=== PATIENT | female | born 1945 | race Caucasian/White ===

== ENCOUNTER 2018-07-12 15:57 | Observation (INO) | payer MEDICARE, MEDICAID ==
[2018-07-12] MEDS ORDERED: Metoprolol Tartrate 5 MG/5 ML SDV IVPUSH ONE (16:01)
[2018-07-12] MEDS ORDERED: Famotidine 20 MG/2 ML SDV IVPUSH ONE (16:01)
[2018-07-12] MEDS ORDERED: Sodium Chloride 0.9% 10 ML Syringe FLUSH PRN ×2 (16:01→20:23)
--- NOTE | 2018-07-12 16:01 | EDM.PDOC ---
ED HPI GENERAL MEDICAL PROBLEM - General Chief Complaint: General Stated Complaint: hypertension Time Seen by Provider: 07/12/18 16:00 Source of Information: Reports: Patient, Family (, daughters 2 and [id number].). Denies: Old Records (No [facility] records available) History Limitations: Reports: No Limitations - History of Present Illness INITIAL COMMENTS - FREE TEXT/NARRATIVE: Patient was brought to to this facility via private automobile by her son with the patient brought to the emergency room by our clinic nurse with the patient walking into the emergency room. [facility] did perform a brief initial evaluation in this facility, including blood pressure check. Note the patient was having a chiropractic evaluation of her neck earlier today and was referred to our clinic secondary to elevated blood pressure in that facility. No medications have been given to this point with the chiropractor also not performing any treatment prior to referral to this facility. She has been having a 7-8/10 bilateral neck pain and occipital headache during the last 3 days, which has been refractory to Tylenol including 1000 mg earlier this morning. She has not had problems with headaches in the past. No history of recent visual changes, diplopia, change in mental status, or other change in neurological status. She denies any significant caffeine use, recent OTC cold medications, etc.. Patient does have a known history of hypertension, however her medications were discontinued about one year ago by her regular provider secondary to low blood pressures? The patient denies any chest pain/pressure, heart flutter, dizziness, orthostasis, orthopnea, diaphoresis, paresthesias, recent decreased exercise tolerance, or any other anginal-type symptoms. No recent history of abdominal pain, heartburn, nausea, diarrhea, melena, gross hematochezia, or any food intolerance, including fatty foods, etc.. She denies any gross hematuria, colic, or other UTI symptoms. The patient also denies any recent fever, cough, wheezing, dyspnea, etc.. Onset: Gradual, Other (As above) Onset Date: 07/09/18 Duration: Constant Location: Reports: Head, Neck. Denies: Face, Chest, Abdomen, Back, Upper Extremity, Left, Upper Extremity, Right, Radiates to Quality: Reports: Ache, Same as Previous Episode, Throbbing Severity: Moderate Improves with: Reports: None Worsens with: Reports: None Context: Reports: Other (As above). Denies: Sick Contact, Trauma Associated Symptoms: Reports: Headaches. Denies: Confusion, Chest Pain, Cough, Diaphoresis, Fever/Chills, Loss of Appetite, Malaise, Nausea/Vomiting, Seizure, Shortness of Breath, Syncope, Weakness Treatments DYE EXPERT: Reports: Acetaminophen (As above) Bilateral Headache Pain Score (Numeric/FACES): 8 - Related Data Allergies Allergy/AdvReac Type Severity Reaction Status Date / Time No Known Allergies Allergy Verified 07/12/18 16:12 Home Meds: Home Meds Acetaminophen [Tylenol] 1 tab PO Q6HR PRN 07/12/18 [History] Aspirin [Adult Low Dose Aspirin EC] 81 mg PO DAILY 07/12/18 [History] Levothyroxine [Synthroid] 50 mcg PO ACBREAKFAST 07/12/18 [History] Past Medical History HEENT History: Reports: Impaired Vision, Other (See Below). Denies: Allergic Rhinitis, Cataract, Glaucoma, Hard of Hearing, Macular Degeneration, Retinal Detachment Other HEENT History: She wears glasses. Cardiovascular History: Reports: Hypertension, Other (See Below). Denies: Afib , Aneurysm, Arrhythmia, Blood Clots/VTE/DVT, CAD, Heart Failure, Heart Murmur, High Cholesterol, VA, PVD, Syncope Other Cardiovascular History: Previous history of hypertension with no current medical therapy. Respiratory History: Reports: None. Denies: Asthma, Bronchitis, Recurrent, COPD , Intubation, Previous, PE, Pneumonia, Recurrent, Pneumothorax, Pulmonary Fibrosis, Sleep Apnea, TB Gastrointestinal History: Reports: GERD. Denies: Celiac Disease, Cholelithiasis , Chronic Constipation, Chronic Diarrhea, GI Bleed, Hepatitis, Hiatal Hernia, Inflammatory Bowel Disease, Irritable Bowel Syndrome, Jaundice, Pancreatitis, PUD Genitourinary History: Reports: None. Denies: Acute Renal Failure, Chronic Renal Insuffiency, Renal Calculus, Retention, Urinary, STD, Urinary Incontinence , UTI, Recurrent BACKEND PYTHON DEVELOPER History: Reports: Dysfunctional Uterine Bleeding, Fibroids, . Denies: Endometriosis : 7 Para: 7 LMP (Approximate): Other (See Below) Other BACKEND PYTHON DEVELOPER History: Surgical menopause secondary to dysfunctional uterine bleeding as above. Full term without complications during pregnancies or deliveries. Bilateral ovarian cysts. Musculoskeletal History: Reports: Arthritis, Back Pain, Chronic, Neck Pain, Chronic, Osteoarthritis, Other (See Below). Denies: Amputation, Fracture, Gout , RA, SLE Other Musculoskeletal History: Umbilical hernia. Neurological History: Reports: None. Denies: Concussion, CVA, Headaches, Chronic, Head Trauma, Migraines, MS, Neuropathy, Peripheral, Parkinson's, Seizure, TIA, Vertigo Psychiatric History: Denies: Abuse, Victim of, ADD, ADHD, Addiction, Anxiety, Depression, Psych Hospitalization(s), Psychosis, PTSD, Suicide Attempt, Suicidal Ideation Endocrine/Metabolic History: Reports: Hypothyroidism, Obesity/BMI 30+. Denies: Diabetes, Gestational, Diabetes, Type I, Diabetes, Type II, Diabetes Mellitus, Type 3c, IDDM Hematologic History: Reports: None. Denies: Anemia, B12 Deficiency, Blood Transfusion(s), Iron Deficiency Immunologic History: Reports: None. Denies: AIDS, HIV, SLE Oncologic (Cancer) History: Reports: None. Denies: Basal Cell Carcinoma, Breast , Cervix, Colon, Hodgkin's Lymphoma, Leukemia, Lymphoma, Malignant Melanoma, Non -Hodgkin's Lymphoma, Ovarian, Squamous Cell Carcinoma, Thyroid, Uterine Dermatologic History: Reports: None. Denies: Eczema, Psoriasis - Infectious Disease History Infectious Disease History: Reports: None. Denies: C-Difficile, Chicken Pox ( Uncertain), Measles, Meningitis, Mononucleosis, MRSA, Mumps, Pertussis ( Whooping Cough), Rheumatic Fever, Rubella, Scarlet Fever, Shingles, TB, VRE - Past Surgical History Head Surgeries/Procedures: Reports: None HEENT Surgical History: Reports: Oral Surgery, Other (See Below). 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 Complete teeth extraction with complete dentures uppers and lowers. Cardiovascular Surgical History: Reports: None. Denies: Varicose Respiratory Surgical History: Reports: None. Denies: Thoracentesis GI Surgical History: Reports: Appendectomy, Colonoscopy, EGD, Other (See Below) . Denies: Cholecystectomy, Hernia, Abdominal, Hernia, Inguinal, Hernia Repair/ Other, Polypectomy Other GI Surgeries/Procedures: Colonoscopy in about 2010. EGD in about 2016. Appendectomy at age 18. Female Surgical History: Reports: Breast Biopsy, Hysterectomy, Salpingo- Oophorectomy, Other (See Below). Denies: Section, D&C, LEEP, Tubal Ligation Other Female Surgeries/Procedures: Complete hysterectomy with bilateral salpingo-oophorectomy secondary to uterine fibroids, dysfunctional uterine bleeding, and bilateral ovarian cysts. Left breast biopsy for benign disease in her 40s. Endocrine Surgical History: Reports: None. Denies: Thyroid Biopsy Neurological Surgical History: Reports: None. Denies: C-Spine, Discectomy, Laminectomy, Lumbar Spine, Sacral Spine, Spinal Fusion, Thoracic Spine, Vertebroplasty Musculoskeletal Surgical History: Reports: None. Denies: Arthroscopic Procedure , Carpal Tunnel, Ganglion Cyst, Joint Replacement, ORIF, Shoulder Surgery Oncologic Surgical History: Reports: None Dermatological Surgical History: Reports: None Social & Family History - Family History HEENT: Reports: None. Denies: Glaucoma, Macular Degeneration, Retinal Detachment Cardiac: Reports: CAD, Hypertension, VA, Stent, Other (See Below). Denies: Afib , Aneurysm, Arrhythmia, Blood Clots/VTE/DVT, Heart Failure, Heart Murmur, High Cholesterol, Pacemaker, PVD/COD, Syncope Other Cardiac Family History: Mother with history of VA with PTCA/stent in her 80s. Father with history of hypertension and CVA as below. Respiratory: Reports: None. Denies: Asthma, COPD, PE, Pneumothorax, Sleep Apnea GI: Reports: None. Denies: Celiac Disease, Cholelithiasis, Colon Polyps, GERD, GI bleed, Inflammatory Bowel Disease, Irritable Bowel Syndrome, PUD : Reports: None. Denies: Renal Calculus, Renal Disease/Insufficiency OBGYN: Reports: None. Denies: Dysfunctional uterine bleeding, Endometriosis, Fibroids, Recurrent Spontaneous Musculoskeletal: Reports: None. Denies: Gout, RA, SLE Neurological: Reports: CVA, Other (See Below). Denies: Alzheimers Disease, Cerebral Aneurysms, Migraines, MS, Parkinson's, Seizure, TIA Other Neurological Family History: Father with fatal CVA at age 92. Psychiatric: Reports: None. Denies: Abuse, Victim of, ADD, ADHD, Anxiety, Depression, Psych Hospitalization(s), PTSD, Suicide Attempt Endocrine/Metabolic: Reports: None. Denies: Diabetes, Gestational, Diabetes, Type I, Diabetes, type II, Diabetes Mellitus, Type 3c, Hypothyroidism, IDDM Hematologic: Reports: None. Denies: Anemia, SLE Immunologic: Reports: None. Denies: AIDS, HIV, SLE Oncologic: Reports: Breast, Other (See Below). Denies: Cervix, Colon, Hodgkin' s Lymphoma, Leukemia, Lymphoma, Non-Hodgkin's Lymphoma, Ovarian, Skin, Uterine Other Oncologic Family History: Mother with history of breast cancer in her 80s. - Tobacco Use Smoking Status *Q: Current Every Day Smoker Tobacco Use Within Last Twelve Months: No Used Tobacco, but Quit: No Smoking Cessation Information Provided To Patient: No Second Hand Smoke Exposure: No Second Hand Smoke Education Provided: No - Caffeine Use Caffeine Use: Reports: Coffee (2 cups per day), Tea (2 cups per day). Denies: Energy Drinks, Soda - Alcohol Use Alcohol Use History: No Days Per Week of Alcohol Use: 1 Number of Drinks Per Day: 1 Number of Drinks Per Day Comment: Usually beer. No previous DWIs, problems with alcohol abuse, etc. 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 ED EXAM, GENERAL - Physical Exam Exam: See Below Exam Limited By: No Limitations General Appearance: Alert, WD/WN, No Apparent Distress Eye Exam: Bilateral Eye: EOMI, Normal Fundi, Normal Inspection (No nystagmus. Patient wearing glasses.), PERRL Ears: Normal External Exam, Normal Canal, Normal TMs, Hearing Loss (Mild bilateral presbycusis) Nose: Normal Inspection, Normal Mucosa, No Blood Throat/Mouth: Normal Lips, Normal Gums, Normal Oropharynx, Normal Voice, No Airway Compromise. No: Normal Teeth (Complete dentures uppers and lowers), Dysphagia, Perioral Cyanosis Head: Atraumatic, Normocephalic. No: Facial Swelling, Facial Tenderness, Sinus Tenderness Neck: Supple, Non-Tender, Full Range of Motion, Carotid Bruit (Mild bilateral carotid bruits). No: Lymphadenopathy (L), Lymphadenopathy (R), Thyromegaly Respiratory/Chest: No Respiratory Distress, Lungs Clear, Normal Breath Sounds, No Accessory Muscle Use, Chest Non-Tender. No: Pleural Rub, Retractions Cardiovascular: Normal Peripheral Pulses, No Edema, No Gallop, No JVD, No Murmur , No Rub, Extra Beats (Irregular with PACs, PVCs, and sinus arrhythmia by heart monitor. Regular rate.). No: Gallop/S3, Gallop/S4, Friction Rub Peripheral Pulses: 2+: Radial (L), Radial (R), Dorsalis Pedis (L), Dorsalis Pedis (R) GI/Abdominal: Normal Bowel Sounds, Soft, Non-Tender, No Organomegaly, No Distention, No Abnormal Bruit, No Mass, Hernia (2 cm in length nonincarcerated umbilical hernia). No: Guarding (Female) Exam: Deferred Rectal (Female) Exam: Deferred Back Exam: Full Range of Motion, Other (Moderate kyphosis). No: CVA Tenderness (L), CVA Tenderness (R), Muscle Spasm, Paraspinal Tenderness, Vertebral Tenderness Extremities: Normal Inspection, Normal Range of Motion, Non-Tender, No Pedal Edema, Normal Capillary Refill. No: Yanira's Sign Neurological: Alert, Oriented, CN II-XII Intact, Normal Cognition, Normal Gait, Normal Reflexes (Negative Babinski's, finger to nose, and pronator rotation tests. No evidence of facial paresis, tongue deviation, orthostasis, etc.. Excellent reverse thought processes.), No Motor/Sensory Deficits Psychiatric: Normal Affect, Normal Mood Skin Exam: Warm, Dry, Intact, Normal Color, Rash (Mild 2 cm in length hyperkeratotic inflamed rash in the periumbilical region consistent with tinea) . No: No Rash, Diaphoretic, Wound/Incision Lymphatic: No Adenopathy EKG INTERPRETATION EKG Date: 07/12/18 Time: 16:09 Rhythm: Other (Moderate sinus arrhythmia with occasional PACs) Rate (Beats/Min): 92 Harlan: Normal (Left cardiac axis) P-Wave: Enlarged (Moderate diffuse biphasic P waves with extreme poor R-wave progression in the anterior leads) QRS: Normal (0.08 seconds) ST-T: Normal QT: Normal AZ/PQ Interval: 0.18 seconds Comparison: NA - No Prior EKG EKG Interpretation Comments: 1. No acute ischemic changes 2. Left atrial enlargement 3. Sinus arrhythmia and PACs. Course - Vital Signs Last Recorded V/S: Last Vital Signs Temp 36.3 C 07/12/18 16:36 Pulse 67 07/12/18 17:32 Resp 20 07/12/18 17:32 BP 152/100 H 07/12/18 17:42 Pulse Ox 96 07/12/18 17:32 Vital Signs - 24 hr 07/12/18 07/12/18 07/12/18 16:00 16:15 16:30 Temperature [ 36.4 C Temporal] Pulse, 70 Peripheral Pulse, 67 69 Peripheral [ Pulse Oximetry] Respiratory 18 18 Rate Blood Pressure 205/134 H Blood Pressure 205/134 H 178/92 H [Left Arm] O2 Sat by Pulse 95 95 Oximetry 07/12/18 07/12/18 07/12/18 16:36 16:39 16:45 Temperature [ 36.3 C Temporal] Pulse, Peripheral Pulse, 97 77 Peripheral [ Pulse Oximetry] Respiratory 18 18 Rate Blood Pressure 194/96 H Blood Pressure 205/134 H 128/80 [Left Arm] O2 Sat by Pulse 97 94 L Oximetry 07/12/18 07/12/18 07/12/18 17:12 17:32 17:42 Temperature [ Temporal] Pulse, Peripheral Pulse, 74 67 Peripheral [ Pulse Oximetry] Respiratory 20 20 Rate Blood Pressure 152/100 H Blood Pressure 142/98 H 152/100 H [Left Arm] O2 Sat by Pulse 94 L 96 Oximetry - Orders/Labs/Meds Orders: Active Orders 24 hr Category Date Time Status Cardiac Monitoring [RC] . DIRECTED Care 07/12/18 16:01 Active EKG Documentation Completion [RC] ASDIRECTED Care 07/12/18 16:01 Active Oxygen Therapy, ED [RC] PRN Care 07/12/18 16:01 Active Peripheral IV Care [RC] . DIRECTED Care 07/12/18 16:01 Active Pulse Oximetry [RC] CONTINUOUS Care 07/12/18 16:01 Active Up With Assistance [RC] PFP Care 07/12/18 16:01 Active Vital Signs [RC] PFP Care 07/12/18 16:01 Active Nothing per Oral Now Diet [DIET] Diet 07/12/18 Breakfast Active Chest 1V Frontal [CR] Stat Exams 07/12/18 16:01 Taken Nitroglycerin [Nitrostat] Med 07/12/18 16:34 Stat 0.4 mg SL ONETIME STA Sodium Chloride 0.9% [Saline Flush] Med 07/12/18 16:01 Active 10 ml FLUSH ASDIRECTED PRN Obtain Past Medical Record [OM.PC] Urgent Oth 07/12/18 16:01 Active Peripheral IV Insertion Adult [OM.PC] Stat Oth 07/12/18 16:01 Ordered Resuscitation Status Stat Resus Stat 07/12/18 16:01 Ordered Medication Orders Nitroglycerin (Nitrostat) 0.4 mg SL ONETIME STA Stop: 07/13/18 16:35 Last Admin: 07/12/18 16:39 Dose: 0.4 mg Sodium Chloride (Saline Flush) 10 ml FLUSH ASDIRECTED PRN PRN Reason: Keep Vein Open Last Admin: 07/12/18 17:42 Dose: 10 ml Labs: Laboratory Tests 07/12/18 07/12/18 07/12/18 Range/Units 16:20 16:20 16:20 WBC 7.1 (4.0-10.2) K/uL RBC 4.79 (3.77-5.09) M/uL Hgb 14.6 (11.7-15.5) g/dL Hct 43.2 (34.0-46.0) % MCV 90.2 (84.0-98.0) fL MCH 30.5 (28.2-33.3) pg MCHC 33.8 (31.7-36.0) g/dL RDW 12.7 (11.2-14.1) % Plt Count 231 (150-350) K/uL Neut % (Auto) 49.7 (45.0-80.0) % Lymph % (Auto) 33.0 (10.0-50.0) % Cross % (Auto) 12.5 (2.0-14.0) % Eos % (Auto) 4.1 (0.0-5.0) % Baso % (Auto) 0.7 (0.0-2.0) % Neut # (Auto) 3.55 (1.40-7.00) K/uL Lymph # (Auto) 2.35 (0.50-3.50) K/uL Cross # (Auto) 0.89 (0.00-1.00) K/uL Eos # (Auto) 0.29 (0.00-0.50) K/uL Baso # (Auto) 0.05 (0.00-0.20) K/uL PT 10.1 (9.5-12.0) SEC INR 0.9 APTT 26.3 (21.0-31.3) SEC D-Dimer, Quantitative < 100 (0-400) ng/mL Sodium (136-145) mmol/L Potassium (3.5-5.1) mmol/L Chloride (98-107) mmol/L Carbon Dioxide (21.0-32.0) mmol/L BUN (7-18) mg/dL Creatinine (0.51-1.17) mg/dL Est Cr Clr Drug Dosing mL/min Estimated GFR (MDRD) mL/min Glucose (74-106) mg/dL Lactic Acid (0.4-2.0) mmol/L Uric Acid (2.6-7.2) mg/dL Calcium (8.5-10.1) mg/dL Magnesium (1.8-2.4) mg/dL Total Bilirubin (0.2-1.0) mg/dL AST (15-37) U/L ALT (12-78) U/L Alkaline Phosphatase (46-116) IU/L Creatine Kinase (26-308) U/L Creatine Kinase Index (0.0-2.5) % CK-MB (CK-2) (0.00-3.60) ng/mL Troponin I (0.000-0.056) ng/mL NT-Pro-B Natriuret Pep (0-125) pg/mL Total Protein (6.4-8.2) g/dL Albumin (3.4-5.0) g/dL TSH, Ultra Sensitive (0.358-3.740) mIU/mL 07/12/18 07/12/18 Range/Units 16:20 16:20 WBC (4.0-10.2) K/uL RBC (3.77-5.09) M/uL Hgb (11.7-15.5) g/dL Hct (34.0-46.0) % MCV (84.0-98.0) fL MCH (28.2-33.3) pg MCHC (31.7-36.0) g/dL RDW (11.2-14.1) % Plt Count (150-350) K/uL Neut % (Auto) (45.0-80.0) % Lymph % (Auto) (10.0-50.0) % Cross % (Auto) (2.0-14.0) % Eos % (Auto) (0.0-5.0) % Baso % (Auto) (0.0-2.0) % Neut # (Auto) (1.40-7.00) K/uL Lymph # (Auto) (0.50-3.50) K/uL Cross # (Auto) (0.00-1.00) K/uL Eos # (Auto) (0.00-0.50) K/uL Baso # (Auto) (0.00-0.20) K/uL PT (9.5-12.0) SEC INR APTT (21.0-31.3) SEC D-Dimer, Quantitative (0-400) ng/mL Sodium 141 (136-145) mmol/L Potassium 3.6 (3.5-5.1) mmol/L Chloride 104 (98-107) mmol/L Carbon Dioxide 26.9 (21.0-32.0) mmol/L BUN 21 H (7-18) mg/dL Creatinine 0.85 (0.51-1.17) mg/dL Est Cr Clr Drug Dosing 57.65 mL/min Estimated GFR (MDRD) > 60 mL/min Glucose 98 (74-106) mg/dL Lactic Acid 0.9 (0.4-2.0) mmol/L Uric Acid 5.0 (2.6-7.2) mg/dL Calcium 9.2 (8.5-10.1) mg/dL Magnesium 1.9 (1.8-2.4) mg/dL Total Bilirubin 0.5 (0.2-1.0) mg/dL AST 21 (15-37) U/L ALT 16 (12-78) U/L Alkaline Phosphatase 58 (46-116) IU/L Creatine Kinase 141 (26-308) U/L Creatine Kinase Index 2.1 (0.0-2.5) % CK-MB (CK-2) 2.90 (0.00-3.60) ng/mL Troponin I 0.000 (0.000-0.056) ng/mL NT-Pro-B Natriuret Pep 70 (0-125) pg/mL Total Protein 7.0 (6.4-8.2) g/dL Albumin 3.7 (3.4-5.0) g/dL TSH, Ultra Sensitive 2.227 (0.358-3.740) mIU/mL Meds: Medications Generic Name Dose Route Start Last Admin Trade Name Freq PRN Reason Stop Dose Admin Nitroglycerin 0.4 mg 07/12/18 16:34 07/12/18 16:39 Nitrostat SL 07/13/18 16:35 0.4 mg ONETIME STA Administration Sodium Chloride 10 ml 07/12/18 16:01 07/12/18 17:42 Saline Flush FLUSH 10 ml ASDIRECTED PRN Administration Keep Vein Open Discontinued Medications Generic Name Dose Route Start Last Admin Trade Name Freq PRN Reason Stop Dose Admin Enalaprilat 1.25 mg 07/12/18 17:35 07/12/18 17:42 Vasotec Iv IVPUSH 07/12/18 17:36 1.25 mg ONETIME ONE Administration Famotidine 40 mg 07/12/18 16:01 07/12/18 16:24 Pepcid IVPUSH 07/12/18 16:02 40 mg ONETIME ONE Administration Labetalol HCl 10 mg 07/12/18 16:08 07/12/18 16:18 Normodyne IVPUSH 07/12/18 16:09 Not Given ONETIME ONE Protocol Metoprolol Tartrate 2.5 mg 07/12/18 16:01 07/12/18 16:15 Lopressor IVPUSH 07/12/18 16:02 2.5 mg ONETIME ONE Administration - Radiology Interpretation Free Text/Narrative:: Director Of Respiratory Therapy shows occasional borderline sinus tachycardia in the 100s with overall moderate sinus arrhythmia, includinga PACs and PVCs with average heart rate in the 70s to 90s. Chest x-ray, portable, shows moderate cardiomegaly with mild COPD changes and possible mild centralized CHF. Mild aortic valve calcification with mildly prominent aortic arch. Somewhat poor inspiratory film Departure - Departure Time of Disposition: 18:30 Disposition: Refer to Observation Condition: Good Clinical Impression: Hypertension, PAC (premature atrial contraction), PVCs (premature ventricular contractions), Hypothyroidism (acquired), Osteoarthritis, Peptic reflux disease , Tinea corporis, Umbilical hernia, Obesity - Discharge Information *PRESCRIPTION DRUG MONITORING PROGRAM REVIEWED*: Not Applicable *COPY OF PRESCRIPTION DRUG MONITORING REPORT IN PATIENT REANNA: Not Applicable Referrals: PCP,None [Primary Care Provider] - Forms: ED Department Discharge Care Plan Goals: See plan - Problem List & Annotations (1) Hypertension SNOMED Code(s): 69038141 Code(s): I10 - ESSENTIAL (PRIMARY) HYPERTENSION Status: Acute Priority: High Current Visit: Yes Onset Date: ~07/12/18 Annotation/Comment:: Hypertensive crisis prior to admission with no evidence of CVA, neurological deficits, etc. Aggressive treatment in the emergency room as above. Various therapeutic options were discussed with the patient and her family with patient placed in observation status with continued medication adjustment, etc. Overall good response of her blood pressure with sublingual nitroglycerin tablets with possibility of cardiac etiology to her symptoms. Her headache did improve prior to admission. Consider CT scan of the head depending on her clinical course. Neuro checks with vitals. No chest pain or anginal type symptoms, however initiate standard rule out [facility] orders. She may need cardiac workup on an outpatient basis once her blood pressures have stabilized depending on her clinical course. Qualifiers: Hypertension type: essential hypertension Qualified Code(s): I10 - Essential (primary) hypertension (2) Hypothyroidism (acquired) SNOMED Code(s): 548108076 Code(s): E03.9 - HYPOTHYROIDISM, UNSPECIFIED Status: Chronic Priority: Medium Current Visit: Yes Annotation/Comment:: TSH normal today. Continue current medical therapy. (3) Obesity SNOMED Code(s): 434286429, 448819100 Code(s): E66.9 - OBESITY, UNSPECIFIED Status: Chronic Priority: Medium Current Visit: Yes Annotation/Comment:: Lipid panel and glycosylated hemoglobin in the a.m. Weight loss in moderation advisable. Qualifiers: Obesity type: due to excess calories Obesity classification: adult class 2 (BMI 35 - 39.9) Serious obesity comorbidity presence: without serious comorbidity Body mass index: unspecified BMI Qualified Code(s): E66.09 - Other obesity due to excess calories (4) Osteoarthritis SNOMED Code(s): 680594413 Code(s): M19.90 - UNSPECIFIED OSTEOARTHRITIS, UNSPECIFIED SITE Status: Chronic Priority: Medium Current Visit: Yes Annotation/Comment:: Other than chronic neck pain and secondary occipital headache stable by history. Qualifiers: Osteoarthritis location: multiple joints Osteoarthritis type: primary Qualified Code(s): M15.0 - Primary generalized (osteo)arthritis (5) PAC (premature atrial contraction) SNOMED Code(s): 718935905 Code(s): I49.1 - ATRIAL PREMATURE DEPOLARIZATION Status: Acute Priority: Medium Current Visit: Yes Onset Date: 07/12/18 Annotation/Comment:: Newly diagnosed. IV Lopressor given in the emergency room with continuation of beta angelo therapy at discharge. (6) PVCs (premature ventricular contractions) SNOMED Code(s): 32013496 Code(s): I49.3 - VENTRICULAR PREMATURE DEPOLARIZATION Status: Acute Priority: High Current Visit: Yes Onset Date: 07/12/18 Annotation/Comment: : As above (7) Peptic reflux disease SNOMED Code(s): 483770958 Code(s): K21.9 - GASTRO-ESOPHAGEAL REFLUX DISEASE WITHOUT ESOPHAGITIS Status: Chronic Priority: Medium Current Visit: Yes Annotation/Comment:: Stable by history. High-dose IV Pepcid given as GI prophylaxis. (8) Tinea corporis SNOMED Code(s): 63909073 Code(s): B35.4 - TINEA CORPORIS Status: Acute Priority: Medium Current Visit: Yes Annotation/Comment:: Lotrisone on admission (9) Umbilical hernia SNOMED Code(s): 766299002 Code(s): K42.9 - UMBILICAL HERNIA WITHOUT OBSTRUCTION OR GANGRENE Status: Chronic Priority: Medium Current Visit: Yes Annotation/Comment:: Symptomatic. Observe for now Qualifiers: Obstruction and gangrene presence: without obstruction or gangrene Qualified Code(s): K42.9 - Umbilical hernia without obstruction or gangrene - Problem List Review Problem List Initiated/Reviewed/Updated: Yes - My Orders Last 24 Hours: My Active Orders 07/12/18 16:01 Cardiac Monitoring [RC] . DIRECTED EKG Documentation Completion [RC] ASDIRECTED Oxygen Therapy, ED [RC] PRN Peripheral IV Care [RC] . DIRECTED Pulse Oximetry [RC] CONTINUOUS Up With Assistance [RC] PFP Vital Signs [RC] PFP Chest 1V Frontal [CR] Stat Sodium Chloride 0.9% [Saline Flush] 10 ml FLUSH ASDIRECTED PRN Obtain Past Medical Record [OM.PC] Urgent Peripheral IV Insertion Adult [OM.PC] Stat Resuscitation Status Stat 07/12/18 16:34 Nitroglycerin [Nitrostat] 0.4 mg SL ONETIME STA 07/12/18 Breakfast Nothing per Oral Now Diet [DIET] - Assessment/Plan Admission H&P: Please use this note as an admission H&P Last 24 Hours: My Active Orders 07/12/18 16:01 Cardiac Monitoring [RC] . DIRECTED EKG Documentation Completion [RC] ASDIRECTED Oxygen Therapy, ED [RC] PRN Peripheral IV Care [RC] . DIRECTED Pulse Oximetry [RC] CONTINUOUS Up With Assistance [RC] PFP Vital Signs [RC] PFP Chest 1V Frontal [CR] Stat Sodium Chloride 0.9% [Saline Flush] 10 ml FLUSH ASDIRECTED PRN Obtain Past Medical Record [OM.PC] Urgent Peripheral IV Insertion Adult [OM.PC] Stat Resuscitation Status Stat 07/12/18 16:34 Nitroglycerin [Nitrostat] 0.4 mg SL ONETIME STA 07/12/18 Breakfast Nothing per Oral Now Diet [DIET] Assessment:: As above. Plan: As above. Extensive precautions were given to the patient and her family, who are in agreement with the treatment plan. The patient's condition is stable enough for observation status and general supervision. Asif salvador physician assumes care in the a.m.
[2018-07-12] MEDS ORDERED: Labetalol 20 MG/4 ML Syringe IVPUSH ONE (16:08)
[2018-07-12] MEDS ORDERED: Nitroglycerin 0.4 MG Tab.SL SL STA (16:34)
[2018-07-12 16:46] LABS: CHLORIDE,CL 104 mmol/L (98-107); SODIUM,NA 141 mmol/L (136-145)
[2018-07-12] MEDS ORDERED: Enalaprilat 1.25 MG/ML SDV IVPUSH ONE (17:35)
[2018-07-12] MEDS ORDERED: Acetaminophen 325 MG Tab PO PRN (20:23)
[2018-07-12] MEDS ORDERED: Temazepam 15 MG Cap PO PRN (20:23)
[2018-07-12] MEDS ORDERED: Metoprolol Succinate 50 MG Tab.ER PO SCH (20:29)
[2018-07-12] MEDS: Betamethasone Dipropionate/Clotrimazole 0.05-1% Crm 15 GM Tube TOP SCH (22:01)
[2018-07-13] MEDS ORDERED: Levothyroxine 50 MCG Tab PO SCH (07:30)
[2018-07-13] MEDS: Betamethasone Dipropionate/Clotrimazole 0.05-1% Crm 15 GM Tube TOP SCH (07:38)
[2018-07-13] MEDS ORDERED: Aspirin 81 MG Tab.EC PO SCH (08:00)
[2018-07-13] MEDS ORDERED: Lisinopril 10 MG Tab PO SCH (08:00)
[2018-07-13 08:20] LABS: HEMOGLOBIN A1C 5.6 % (4.3-5.7)
[2018-07-13 08:37] LABS: CHLORIDE,CL 106 mmol/L (98-107); SODIUM,NA 144 mmol/L (136-145)
--- NOTE | 2018-07-13 12:44 | PCM.DCSUM1 ---
Discharge Summary - Hospital Course Brief History: Patient admitted for treatment of significantly elevated blood pressure. Headache and neck pain present. - Discharge Data Discharge Date: 07/13/18 Discharge Disposition: Home, Self-Care 01 Condition: Good - Discharge Diagnosis/Problem(s) (1) Hypertension SNOMED Code(s): 79779806 ICD Code: I10 - ESSENTIAL (PRIMARY) HYPERTENSION Status: Acute Priority: High Current Visit: Yes Onset Date: ~07/12/18 Problem Details: Standard r/ o OK orders initiated after receiving therapy to treat hypertension. BPs gradually improved throughout stay. Will place patient back on antihypertensive medication at discharge, with close follow up by primary provider to have meds adjusted as needed. Serial troponins negative. Qualifiers: Hypertension type: essential hypertension Qualified Code(s): I10 - Essential (primary) hypertension (2) PAC (premature atrial contraction) SNOMED Code(s): 210563843 ICD Code: I49.1 - ATRIAL PREMATURE DEPOLARIZATION Status: Acute Priority : Medium Current Visit: Yes Onset Date: 07/12/18 Problem Details: Newly diagnosed. IV Lopressor given in the emergency room with continuation of beta angelo therapy at discharge. (3) PVCs (premature ventricular contractions) SNOMED Code(s): 33404271 ICD Code: I49.3 - VENTRICULAR PREMATURE DEPOLARIZATION Status: Acute Priority: High Current Visit: Yes Onset Date: 07/12/18 Problem Details: As above (4) Tinea corporis SNOMED Code(s): 78695961 ICD Code: B35.4 - TINEA CORPORIS Status: Acute Priority: Medium Current Visit: Yes Problem Details: Lotrisone on admission (5) Hypothyroidism (acquired) SNOMED Code(s): 602038550 ICD Code: E03.9 - HYPOTHYROIDISM, UNSPECIFIED Status: Chronic Priority: Medium Current Visit: Yes Problem Details: TSH normal today. Continue current medical therapy. (6) Obesity SNOMED Code(s): 351285241, 564732039 ICD Code: E66.9 - OBESITY, UNSPECIFIED Status: Chronic Priority: Medium Current Visit: Yes Problem Details: Glycosylated Hgb normal. Chol 243, LDL 163, HDL 59. Weight loss in moderation advised, to follow up with primary care provider for cholesterol management. Qualifiers: Obesity type: due to excess calories Obesity classification: adult class 2 (BMI 35 - 39.9) Serious obesity comorbidity presence: without serious comorbidity Body mass index: unspecified BMI Qualified Code(s): E66.09 - Other obesity due to excess calories (7) Osteoarthritis SNOMED Code(s): 736176780 ICD Code: M19.90 - UNSPECIFIED OSTEOARTHRITIS, UNSPECIFIED SITE Status: Chronic Priority: Medium Current Visit: Yes Problem Details: Other than chronic neck pain and secondary occipital headache stable by history. Qualifiers: Osteoarthritis location: multiple joints Osteoarthritis type: primary Qualified Code(s): M15.0 - Primary generalized (osteo)arthritis (8) Umbilical hernia SNOMED Code(s): 027662578 ICD Code: K42.9 - UMBILICAL HERNIA WITHOUT OBSTRUCTION OR GANGRENE Status: Chronic Priority: Medium Current Visit: Yes Problem Details: Symptomatic. Observe for now Qualifiers: Obstruction and gangrene presence: without obstruction or gangrene Qualified Code(s): K42.9 - Umbilical hernia without obstruction or gangrene - Patient Summary/Data Hospital Course: BP improved after interventions performed in ER and medication administered after admission to Observation. Patient's headache and neck discomfort has completely resolved. Negative cardiac labs. Vital signs stable. - Patient Instructions Diet: Heart Healthy Diet Activity: No Strenuous Activities (until rechecked by primary care provider), Rest and Relax Today Showering/Bathing: May Shower Other/Special Instructions: Start checking your blood pressure at home 3 times a week and keep a diary. Make an appointment to follow up with your primary provider to review the blood pressures. Your medications may need adjusted. Your cholesterol is also elevated. Discuss at your visit if you wish to start cholesterol medication. Follow up as needed if you have problems/concerns. - Discharge Plan *PRESCRIPTION DRUG MONITORING PROGRAM REVIEWED*: Not Applicable *COPY OF PRESCRIPTION DRUG MONITORING REPORT IN PATIENT REANNA: Not Applicable Prescriptions/Med Rec: Betamethasone/Clotrimazole [Lotrisone] 0 gm TOP BID #1 tube Lisinopril [Prinivil] 10 mg PO DAILY #30 tablet Metoprolol Succinate [Toprol XL] 25 mg PO BEDTIME #30 tab.er Home Medications: Home Meds Acetaminophen [Tylenol] 1 tab PO Q6HR PRN 07/12/18 [History] Aspirin [Adult Low Dose Aspirin EC] 81 mg PO DAILY 07/12/18 [History] Levothyroxine [Synthroid] 50 mcg PO ACBREAKFAST 07/12/18 [History] Betamethasone/Clotrimazole [Lotrisone] 0 gm TOP BID #1 tube 07/13/18 [Rx] Lisinopril [Prinivil] 10 mg PO DAILY #30 tablet 07/13/18 [Rx] Metoprolol Succinate [Toprol XL] 25 mg PO BEDTIME #30 tab.er 07/13/18 [Rx] Patient Handouts: How to Take Your Blood Pressure, [id number], DASH Eating Plan, Hypertension, [id number] Forms: ED Department Discharge Referrals: PCP,None [Primary Care Provider] - - Discharge Summary/Plan Comment DC Time >30 min.: No - General Info Date of Service: 07/13/18 Admission Dx/Problem (Free Text: HTN exacerbation Subjective Update: Patient feels well today. Headache and neck ache have completely resolved. No new complaints. Functional Status: Reports: Pain Controlled - Review of Systems General: Reports: No Symptoms HEENT: Reports: No Symptoms Pulmonary: Reports: No Symptoms Cardiovascular: Reports: No Symptoms Gastrointestinal: Reports: No Symptoms Genitourinary: Reports: No Symptoms Musculoskeletal: Reports: No Symptoms Skin: Reports: No Symptoms Neurological: Reports: No Symptoms Psychiatric: Reports: No Symptoms - Patient Data Vitals - Most Recent: Last Vital Signs Temp 36.7 C 07/13/18 11:42 Pulse 61 07/13/18 11:42 Resp 16 07/13/18 11:42 BP 147/81 H 07/13/18 11:42 Pulse Ox 95 07/13/18 11:42 Weight - Most Recent: 80.876 kg I&O - Last 24 hours: Intake & Output 07/12/18 07/13/18 07/13/18 22:59 06:59 14:59 Intake Total 360 Output Total 400 Balance -400 360 Lab Results - Last 24 hrs: Laboratory Results - last 24 hr 07/12/18 07/12/18 07/12/18 Range/Units 16:20 16:20 16:20 WBC 7.1 (4.0-10.2) K/uL RBC 4.79 (3.77-5.09) M/uL Hgb 14.6 (11.7-15.5) g/dL Hct 43.2 (34.0-46.0) % MCV 90.2 (84.0-98.0) fL MCH 30.5 (28.2-33.3) pg MCHC 33.8 (31.7-36.0) g/dL RDW 12.7 (11.2-14.1) % Plt Count 231 (150-350) K/uL Neut % (Auto) 49.7 (45.0-80.0) % Lymph % (Auto) 33.0 (10.0-50.0) % Gem % (Auto) 12.5 (2.0-14.0) % Eos % (Auto) 4.1 (0.0-5.0) % Baso % (Auto) 0.7 (0.0-2.0) % Neut # (Auto) 3.55 (1.40-7.00) K/uL Lymph # (Auto) 2.35 (0.50-3.50) K/uL Gem # (Auto) 0.89 (0.00-1.00) K/uL Eos # (Auto) 0.29 (0.00-0.50) K/uL Baso # (Auto) 0.05 (0.00-0.20) K/uL PT 10.1 (9.5-12.0) SEC INR 0.9 APTT 26.3 (21.0-31.3) SEC D-Dimer, Quantitative < 100 (0-400) ng/mL Sodium (136-145) mmol/L Potassium (3.5-5.1) mmol/L Chloride (98-107) mmol/L Carbon Dioxide (21.0-32.0) mmol/L BUN (7-18) mg/dL Creatinine (0.51-1.17) mg/dL Est Cr Clr Drug Dosing mL/min Estimated GFR (MDRD) mL/min Glucose (74-106) mg/dL Hemoglobin A1c (4.3-5.7) % Lactic Acid (0.4-2.0) mmol/L Uric Acid (2.6-7.2) mg/dL Calcium (8.5-10.1) mg/dL Magnesium (1.8-2.4) mg/dL Total Bilirubin (0.2-1.0) mg/dL AST (15-37) U/L ALT (12-78) U/L Alkaline Phosphatase (46-116) IU/L Creatine Kinase (26-308) U/L Creatine Kinase Index (0.0-2.5) % CK-MB (CK-2) (0.00-3.60) ng/mL Troponin I (0.000-0.056) ng/mL NT-Pro-B Natriuret Pep (0-125) pg/mL Total Protein (6.4-8.2) g/dL Albumin (3.4-5.0) g/dL Triglycerides (30-150) mg/dL Cholesterol (100-200) mg/dL LDL Cholesterol, Calc (0-100) mg/dL HDL Cholesterol (40-60) mg/dL TSH, Ultra Sensitive (0.358-3.740) mIU/mL 07/12/18 07/12/18 07/12/18 Range/Units 16:20 16:20 21:45 WBC (4.0-10.2) K/uL RBC (3.77-5.09) M/uL Hgb (11.7-15.5) g/dL Hct (34.0-46.0) % MCV (84.0-98.0) fL MCH (28.2-33.3) pg MCHC (31.7-36.0) g/dL RDW (11.2-14.1) % Plt Count (150-350) K/uL Neut % (Auto) (45.0-80.0) % Lymph % (Auto) (10.0-50.0) % Gem % (Auto) (2.0-14.0) % Eos % (Auto) (0.0-5.0) % Baso % (Auto) (0.0-2.0) % Neut # (Auto) (1.40-7.00) K/uL Lymph # (Auto) (0.50-3.50) K/uL Gem # (Auto) (0.00-1.00) K/uL Eos # (Auto) (0.00-0.50) K/uL Baso # (Auto) (0.00-0.20) K/uL PT (9.5-12.0) SEC INR APTT (21.0-31.3) SEC D-Dimer, Quantitative (0-400) ng/mL Sodium 141 (136-145) mmol/L Potassium 3.6 (3.5-5.1) mmol/L Chloride 104 (98-107) mmol/L Carbon Dioxide 26.9 (21.0-32.0) mmol/L BUN 21 H (7-18) mg/dL Creatinine 0.85 (0.51-1.17) mg/dL Est Cr Clr Drug Dosing 57.65 mL/min Estimated GFR (MDRD) > 60 mL/min Glucose 98 (74-106) mg/dL Hemoglobin A1c (4.3-5.7) % Lactic Acid 0.9 (0.4-2.0) mmol/L Uric Acid 5.0 (2.6-7.2) mg/dL Calcium 9.2 (8.5-10.1) mg/dL Magnesium 1.9 (1.8-2.4) mg/dL Total Bilirubin 0.5 (0.2-1.0) mg/dL AST 21 (15-37) U/L ALT 16 (12-78) U/L Alkaline Phosphatase 58 (46-116) IU/L Creatine Kinase 141 116 (26-308) U/L Creatine Kinase Index 2.1 1.9 (0.0-2.5) % CK-MB (CK-2) 2.90 2.20 (0.00-3.60) ng/mL Troponin I 0.000 0.000 (0.000-0.056) ng/mL NT-Pro-B Natriuret Pep 70 (0-125) pg/mL Total Protein 7.0 (6.4-8.2) g/dL Albumin 3.7 (3.4-5.0) g/dL Triglycerides (30-150) mg/dL Cholesterol (100-200) mg/dL LDL Cholesterol, Calc (0-100) mg/dL HDL Cholesterol (40-60) mg/dL TSH, Ultra Sensitive 2.227 (0.358-3.740) mIU/mL 07/13/18 07/13/18 07/13/18 Range/Units 07:27 07:27 07:27 WBC 5.8 (4.0-10.2) K/uL RBC 4.67 (3.77-5.09) M/uL Hgb 14.6 (11.7-15.5) g/dL Hct 42.8 (34.0-46.0) % MCV 91.6 (84.0-98.0) fL MCH 31.3 (28.2-33.3) pg MCHC 34.1 (31.7-36.0) g/dL RDW 12.9 (11.2-14.1) % Plt Count 219 (150-350) K/uL Neut % (Auto) 47.2 (45.0-80.0) % Lymph % (Auto) 33.6 (10.0-50.0) % Gem % (Auto) 13.9 (2.0-14.0) % Eos % (Auto) 4.6 (0.0-5.0) % Baso % (Auto) 0.7 (0.0-2.0) % Neut # (Auto) 2.75 (1.40-7.00) K/uL Lymph # (Auto) 1.96 (0.50-3.50) K/uL Gem # (Auto) 0.81 (0.00-1.00) K/uL Eos # (Auto) 0.27 (0.00-0.50) K/uL Baso # (Auto) 0.04 (0.00-0.20) K/uL PT (9.5-12.0) SEC INR APTT (21.0-31.3) SEC D-Dimer, Quantitative (0-400) ng/mL Sodium 144 (136-145) mmol/L Potassium 3.9 (3.5-5.1) mmol/L Chloride 106 (98-107) mmol/L Carbon Dioxide 31.1 (21.0-32.0) mmol/L BUN 13 (7-18) mg/dL Creatinine 0.83 (0.51-1.17) mg/dL Est Cr Clr Drug Dosing 59.04 mL/min Estimated GFR (MDRD) > 60 mL/min Glucose 94 (74-106) mg/dL Hemoglobin A1c 5.6 (4.3-5.7) % Lactic Acid (0.4-2.0) mmol/L Uric Acid (2.6-7.2) mg/dL Calcium 8.6 (8.5-10.1) mg/dL Magnesium (1.8-2.4) mg/dL Total Bilirubin 0.7 (0.2-1.0) mg/dL AST 18 (15-37) U/L ALT 15 (12-78) U/L Alkaline Phosphatase 52 (46-116) IU/L Creatine Kinase 89 (26-308) U/L Creatine Kinase Index 1.8 (0.0-2.5) % CK-MB (CK-2) 1.60 (0.00-3.60) ng/mL Troponin I 0.000 (0.000-0.056) ng/mL NT-Pro-B Natriuret Pep (0-125) pg/mL Total Protein 6.4 (6.4-8.2) g/dL Albumin 3.3 L (3.4-5.0) g/dL Triglycerides 103 (30-150) mg/dL Cholesterol 243 H (100-200) mg/dL LDL Cholesterol, Calc 163 H (0-100) mg/dL HDL Cholesterol 59 (40-60) mg/dL TSH, Ultra Sensitive (0.358-3.740) mIU/mL Med Orders - Current: Current Medications Acetaminophen (Tylenol) 650 mg PO Q4H PRN PRN Reason: Pain Aspirin (Halfprin) 81 mg PO DAILY [facility] Last Admin: 07/13/18 07:32 Dose: 81 mg Betamethasone/Clotrimazole (Lotrisone) 0 gm TOP BID [facility] Last Admin: 07/13/18 07:38 Dose: 1 applic Levothyroxine Sodium (Synthroid) 50 mcg PO ACBREAKFAST [facility] Last Admin: 07/13/18 07:32 Dose: 50 mcg Lisinopril (Prinivil) 10 mg PO DAILY [facility] Last Admin: 07/13/18 07:31 Dose: 10 mg Metoprolol Succinate (Toprol Xl) 50 mg PO BEDTIME [facility] Last Admin: 07/12/18 22:01 Dose: 50 mg Nitroglycerin (Nitrostat) 0.4 mg SL ONETIME STA Stop: 07/13/18 16:35 Last Admin: 07/12/18 16:39 Dose: 0.4 mg Sodium Chloride (Saline Flush) 10 ml FLUSH ASDIRECTED PRN PRN Reason: Keep Vein Open Last Admin: 07/12/18 17:42 Dose: 10 ml Sodium Chloride (Saline Flush) 10 ml FLUSH Q12HR PRN PRN Reason: Keep Vein Open Temazepam (Restoril) 15 mg PO BEDTIME PRN PRN Reason: Insomnia Discontinued Medications Enalaprilat (Vasotec Iv) 1.25 mg IVPUSH ONETIME ONE Stop: 07/12/18 17:36 Last Admin: 07/12/18 17:42 Dose: 1.25 mg Famotidine (Pepcid) 40 mg IVPUSH ONETIME ONE Stop: 07/12/18 16:02 Last Admin: 07/12/18 16:24 Dose: 40 mg Labetalol HCl (Normodyne) 10 mg IVPUSH ONETIME ONE; Protocol Stop: 07/12/18 16:09 Last Admin: 07/12/18 16:18 Dose: Not Given Metoprolol Tartrate (Lopressor) 2.5 mg IVPUSH ONETIME ONE Stop: 07/12/18 16:02 Last Admin: 07/12/18 16:15 Dose: 2.5 mg - Exam General: Reports: Alert, Oriented, Cooperative, No Acute Distress HEENT: Reports: Pupils Equal, Pupils Reactive, EOMI, Mucous Membr. Moist/[place] Neck: Reports: Supple Lungs: Reports: Clear to Auscultation, Normal Respiratory Effort Cardiovascular: Reports: Regular Rate, Regular Rhythm GI/Abdominal Exam: Normal Bowel Sounds, Soft, Non-Tender, No Distention (Female) Exam: Deferred Rectal (Female) Exam: Deferred Back Exam: Denies: CVA Tenderness (L), CVA Tenderness (R), Muscle Spasm, Paraspinal Tenderness, Vertebral Tenderness Extremities: Normal Capillary Refill Skin: Reports: Warm, Dry Neurological: Reports: No New Focal Deficit Psy/Mental Status: Reports: Alert, Normal Affect, Normal Mood EKG INTERPRETATION EKG Date: 07/13/18 Time: 08:47 Rhythm: Other (Sinus Bradycardia) Rate (Beats/Min): 51 [place]: Normal P-Wave: Present QRS: Normal ST-T: Normal QT: Prolonged Comparison: No Change
== END 2018-07-13 14:15 | disposition home or self-care (01) ==
LOC: LL.ED 15:57 → LL.MS 18:10 → UNDOADMOB 18:10
PROVIDERS: ADMIT Family Medicine; ATTEND Emergency Medicine
DX: I10 Essential (primary) hypertension (principal); I49.1 Atrial premature depolarization; I49.3 Ventricular premature depolarization; B35.4 Tinea corporis; E03.9 Hypothyroidism, unspecified; F17.200 Nicotine dependence, unspecified, uncomplicated; K42.9 Umbilical hernia without obstruction or gangrene; K21.9 Gastro-esophageal reflux disease without esophagitis; M15.0 Primary generalized (osteo)arthritis; E66.09 Other obesity due to excess calories; Z68.28 Body mass index [BMI] 28.0-28.9, adult; Z79.82 Long term (current) use of aspirin; Z79.899 Other long term (current) drug therapy
CPT/HCPCS: 36415; 71045; 80053; 80061; 82550; 82553; 83036; 83605; 83735; 83880; 84443; 84484; 84550; 85025; 85379; 85610; 85730; 93005; 96374; 99285-25; A9270-GY; G0378; J3490